=== PATIENT | female | born 1965 | race Caucasian/White ===

== ENCOUNTER → 2023-11-02 11:23 | Outpatient (REF) | payer BC, SELFPAY | LOC: HWRCS 11:23 | PROVIDERS: ATTENDING PHYSICIAN Internal Medicine Cardiovascular Disease; FAMILY PHYSICIAN Nurse Practitioner Family | DX: R06.09 Other forms of dyspnea (principal) | CPT/HCPCS: 93306 ==

== ENCOUNTER → 2023-11-09 15:10 | Outpatient (REF) | payer BC, SELFPAY | LOC: RCS 15:10 | PROVIDERS: ATTENDING PHYSICIAN Internal Medicine Cardiovascular Disease; FAMILY PHYSICIAN Nurse Practitioner Family | DX: R06.09 Other forms of dyspnea (principal) | CPT/HCPCS: 93017 ==